=== PATIENT | male | born 1980 | race Two or more races ===

== ENCOUNTER 2017-05-01 12:34 | Emergency (ER) | payer MEDICAID, OTHER ==
[~2017-05-01] VITALS: Ht 180.3 cm; Wt 108.9 kg
[~2017-05-01 12:34] MED LIST: NKM; PERMETHRIN60 GM TOPIC
[2017-05-01] MEDS ORDERED: OMEPRAZOLE20 M3 ORAL (12:48)
[2017-05-01 12:50] VITALS: BP 143/77
[2017-05-01 13:16] LABS: BASOPHILS % (AUTO) 0.8 % (0.0-2.0); EOSINOPHILS % (AUTO) 1.5 % (0.0-3.0); LYMPHOCYTES % (AUTO) 26.8 % (20.0-45.0); MEAN CORPUSCULAR HEMOGLOBIN 30.5 PG (27.0-31.0); MEAN CORPUSCULAR HGB CONC 32.8 G/DL (32.0-36.0); MEAN CORPUSCULAR VOLUME 93 FL (80-99); MEAN PLATELET VOLUME 7.7 FL (6.5-10.1); MONOCYTES % (AUTO) 6.5 % (1.0-10.0); NEUTROPHILS % (AUTO) 64.4 % (45.0-75.0); PLATELET COUNT 250 K/UL (150-450); RED BLOOD COUNT 5.14 M/UL (4.70-6.10); RED CELL DISTRIBUTION WIDTH 11.2 % (11.6-14.8); WHITE BLOOD COUNT 9.6 K/UL (4.8-10.8)
[2017-05-01 13:22] LABS: PROTHROMBIN TIME 10.6 SEC (9.30-11.50)
[2017-05-01 13:27] LABS: ALANINE AMINOTRANSFERASE 54 U/L (3-41); ALBUMIN/GLOBULIN RATIO 1.5 (1.0-2.7); ANION GAP 12 (5-15); ASPARTATE AMINO TRANSFERASE 32 U/L (5-40); CALCIUM 9.2 mg/dL (8.6-10.2); CARBON DIOXIDE 23 mEQ/L (20-30); CHLORIDE 102 mEQ/L (98-107); GLOMERULAR FILTRATION RATE > 60 mL/min (>60); HEMOLYSIS 51; POTASSIUM 4.4 mEQ/L (3.4-4.9); SODIUM 137 mEQ/L (135-145); TOTAL PROTEIN 7.6 g/dL (6.6-8.7)
[2017-05-01 13:28] LABS: TROPONIN I < 0.30 ng/mL (<=0.30)
--- NOTE | 2017-05-01 13:30 | Emergency Room Report ---
History of Present Illness General Chief Complaint: Chest Pain Source: Patient Present Illness HPI The patient presents with an unusual feeling in his head that began on Saturday. 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 He felt like a helmet on top of his head pressing in. He felt anxious at that time also. He immediately went into the refrigeration area and started to feel better. He also felt some chest pain at that time. There were no palpitations. The pain is left-sided and somewhat pressure-like but also sharp. The pain has been intermittent since that time and he still feels it. He smokes. Other risk factors are negative for cardiac disease. He also ate some cannabis on Saturday which allowed to sleep better. Today he had a similar episode in his head. Also had the chest pain. He didn't take any other medication for the chest pain. The patient has a long history of GERD and is on omeprazole daily. He's felt increased chest pain when he lays down. No blood or melena. In addition he has difficulty when he goes to sleep. He feels his breathing might be stopping when he starts to fall asleep and this wakes him up sometimes at night. The patient has gained 25 pounds in the last several months. 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 His family is in [place] and he travels there for the weekends - lacking sleep. There he drinks a 12 pack a day. He doesn't drink during the week. Cutting down to 5 cigarettes/d. No rashes or dysuria. Allergies: Coded Allergies: No Known Allergies (Unverified , 01/01/15) Patient History Past Medical History: see triage record Pertinent Family History: DM - grandfather Social History: Reports: drug use, smoking Social History Narrative in [facility] and 2 jobs Reviewed Nursing Documentation: PMH: Agreed, PSxH: Agreed Nursing Documentation-PMH Past Medical History: No Stated History Review of Systems All Other Systems: negative except mentioned in HPI Physical Exam Vital Signs Date Time Temp Pulse Resp B/P Pulse Ox O2 Delivery O2 Flow Rate FiO2 05/01/17 12:41 100.0 79 19 143/77 97 Room Air Sp02 EP Interpretation: reviewed, normal General Appearance: well appearing, no apparent distress, GCS 15 Head: normocephalic Eyes: bilateral eye PERRL, bilateral eye normal inspection ENT: moist mucus membranes Neck: supple Respiratory: lungs clear, normal breath sounds, other - chest wall slightly tender Cardiovascular #1: regular rate, rhythm Cardiovascular #2: 2+ radial (R) Gastrointestinal: normal inspection, normal bowel sounds, non tender, no mass, non-distended Musculoskeletal: back normal, gait/station normal, normal range of motion Neurologic: alert, oriented x3, grossly normal Psychiatric: anxious Skin: normal inspection, warm/dry Medical Decision Making Diagnostic Impression: Primary Impression: Chest pain Qualified Codes: R07.9 - Chest pain, unspecified Additional Impressions: Stress Sleep apnea Qualified Codes: G47.33 - Obstructive sleep apnea (adult) (pediatric) ER Course Patient presents with chest pain and unusual symptoms with increased stress. DDx; AMI, ACS, GERD, chest wall pain, anxiety, hyperventilation amongst others. VS against PE. Evaluation with EKG, CXR, labs. Treatment with hydration and observation. EKG no acute changes. CXR - no infiltrates. Labs: Nl WBC, H/H. Slightly elevated glucose and ALT. Discussed findings with patient and contribution of alcohol to GERD and possibly stress. No medical emergency at this time. Patient stable for outpatient observation and treatment. Laboratory Tests Test 05/01/17 12:50 05/01/17 13:36 White Blood Count 9.6 K/UL (4.8-10.8) Red Blood Count 5.14 M/UL (4.70-6.10) Hemoglobin 15.7 G/DL (14.2-18.0) Hematocrit 47.8 % (42.0-52.0) Mean Corpuscular Volume 93 FL (80-99) Mean Corpuscular Hemoglobin 30.5 PG (27.0-31.0) Mean Corpuscular Hemoglobin Concent 32.8 G/DL (32.0-36.0) Red Cell Distribution Width 11.2 % (11.6-14.8) L Platelet Count 250 K/UL (150-450) Mean Platelet Volume 7.7 FL (6.5-10.1) Neutrophils (%) (Auto) 64.4 % (45.0-75.0) Lymphocytes (%) (Auto) 26.8 % (20.0-45.0) Monocytes (%) (Auto) 6.5 % (1.0-10.0) Eosinophils (%) (Auto) 1.5 % (0.0-3.0) Basophils (%) (Auto) 0.8 % (0.0-2.0) Prothrombin Time 10.6 SEC (9.30-11.50) Prothrombin Time INR 1.0 (0.9-1.1) PTT 28 SEC (23-33) Sodium Level 137 mEQ/L (135-145) Potassium Level 4.4 mEQ/L (3.4-4.9) Chloride Level 102 mEQ/L (98-107) Carbon Dioxide Level 23 mEQ/L (20-30) Anion Gap 12 (5-15) Blood Urea Nitrogen 20 mg/dL (7-23) Creatinine 1.0 mg/dL (0.7-1.2) Estimate Glomerular Filtration Rate > 60 mL/min (>60) Glucose Level 112 mg/dL (74-106) H Calcium Level 9.2 mg/dL (8.6-10.2) Total Bilirubin 0.3 mg/dL (0.0-1.2) Aspartate Amino Transferase (AST) 32 U/L (5-40) Alanine Aminotransferase (ALT) 54 U/L (3-41) H Alkaline Phosphatase 54 U/L (40-129) Total Creatine Kinase 126 U/L (38-174) Troponin I < 0.30 ng/mL (<=0.30) Pro-B-Type Natriuretic Peptide 35 pg/mL (0-125) Total Protein 7.6 g/dL (6.6-8.7) Albumin 4.6 g/dL (3.5-5.2) Globulin 3.0 g/dL Albumin/Globulin Ratio 1.5 (1.0-2.7) Urine Color Pale yellow Urine Appearance Clear Urine pH 6 (4.5-8.0) Urine Specific [place] 1.020 (1.005-1.035) Urine Protein Negative (NEGATIVE) Urine Glucose (UA) Negative (NEGATIVE) Urine Ketones Negative (NEGATIVE) Urine Occult Blood 2+ (NEGATIVE) H Urine Nitrite Negative (NEGATIVE) Urine Bilirubin Negative (NEGATIVE) Urine Urobilinogen Normal MG/DL (0.0-1.0) Urine Leukocyte Esterase 1+ (NEGATIVE) H Urine RBC 5-10 /HPF (0 - 0) H Urine WBC 2-4 /HPF (0 - 0) Urine Squamous Epithelial Cells Occasional /LPF Urine Bacteria Occasional /HPF (NONE) Urine Opiates Screen Negative (NEGATIVE) Urine Barbiturates Screen Negative (NEGATIVE) Phencyclidine (PCP) Screen Negative (NEGATIVE) Urine Amphetamines Screen Negative (NEGATIVE) Urine Benzodiazepines Screen Negative (NEGATIVE) Urine Cocaine Screen Negative (NEGATIVE) Urine Marijuana (THC) Screen Positive (NEGATIVE) H EKG Diagnostic Results Rate: normal Rhythm: NSR ST Segments: no acute changes Rhythm Strip Diag. Results EP Interpretation: yes Rhythm: NSR, no PVC's, no ectopy Chest X-Ray Diagnostic Results Chest X-Ray Diagnostic Results : Chest X-Ray Ordered: Yes # of Views/Limited/Complete: 1 View Indication: Chest Pain EP Interpretation: Yes Interpretation: no consolidation, no effusion, no pneumothorax, no acute cardiopulmonary disease Impression: No acute disease Interpreting ER Provider: Electronically signed by Taiwo Diehl MD Status: improved Disposition: HOME, SELF-CARE Condition: Improved Scripts Lorazepam* (ATIVAN*) 0.5 Mg Tablet 0.5 MG ORAL THREE TIMES A DAY Y for anxiety, #6 TAB Prov: Taiwo Diehl M.D. 05/01/17 Taiwo Diehl M.D. May 01, 2017 13:30
[2017-05-01 13:51] LABS: APPEARANCE,URINE CLEAR; KETONES,URINE NEGATIVE (NEGATIVE); LEUKOCYTE ESTERASE ,URINE 1+ (NEGATIVE); NITRITE,URINE NEGATIVE (NEGATIVE); PH,URINE 6 (4.5-8.0); PROTEIN,URINE NEGATIVE (NEGATIVE); UROBILINOGEN,URINE NORMAL MG/DL (0.0-1.0)
[2017-05-01 13:55] LABS: BACTERIA,URINE OCCASIONAL /HPF; SQUAMOUS EPITHELIAL CELL,UR OCCASIONAL /LPF (NONE/OCC)
--- NOTE | 2017-05-01 14:40 | Diagnostic Imaging Report ---
Indication: Chest pain Technique: One view of the chest Comparison: none Findings: Lungs and pleural spaces are clear. Heart size is normal. Impression: No acute process
[2017-05-01 14:50] VITALS: BP 122/75
[2017-05-01] MEDS ORDERED: ATIVAN0.5 MG ORAL (16:32)
[2017-05-01 17:28] VITALS: BP 122/78
== END 2017-05-01 17:30 | disposition home or self-care (01) ==
LOC: EMR 12:58
DX: R07.89 Other chest pain (principal); F43.9 Reaction to severe stress, unspecified; G47.30 Sleep apnea, unspecified; F17.200 Nicotine dependence, unspecified, uncomplicated
CPT/HCPCS: 36415; 71010; 80053; 80300; 81003; 82550; 83880; 84484; 85025; 85610; 85730; 93005; 96360

== ENCOUNTER 2017-08-05 07:35 | Emergency (ER) | payer OTHER ==
[~2017-08-05] VITALS: Ht 182.9 cm; Wt 108.9 kg
[~2017-08-05 07:35] MED LIST changes: +ATIVAN0.5 MG ORAL; +OMEPRAZOLE20 M3 ORAL
[2017-08-05] MEDS ORDERED: IBUPROFEN600 MG ORAL (07:42)
[2017-08-05] MEDS ORDERED: ROBAXIN-750750 MG PO (07:42)
[2017-08-05] MEDS ORDERED: Methocarbamol 750mg tab ORAL ONE (08:00)
--- NOTE | 2017-08-05 08:03 | Emergency Room Report ---
History of Present Illness General Chief Complaint: Lower Back Pain or Injury Source: Patient Present Illness HPI 37-year-old male with no significant pmhx p/w back pain for 2 days. Patient states pain started when he bent down to pick something up. Pain is localized to right and left lower back, worse on left, sharp in nature, radiating down leg on left side. Movement worsens pain. There are no alleviating factors. Patient did not take any medication for pain This is the first occurrence of back pain. e past. Denies lower extremity weakness/numbness, no bowel/bladder retention or incontinence, saddle anesthesia. Denies fever, chills, abdominal pain, n/v, dysuria/hematuria. No history of IVDA Allergies: Coded Allergies: No Known Allergies (Unverified , 01/01/15) Patient History Past Medical History: see triage record Past Surgical History: none Pertinent Family History: none Reviewed Nursing Documentation: PMH: Agreed, PSxH: Agreed Nursing Documentation-PMH Past Medical History: No Stated History Review of Systems All Other Systems: negative except mentioned in HPI Physical Exam Vital Signs Date Time Temp Pulse Resp B/P (MAP) Pulse Ox O2 Delivery O2 Flow Rate FiO2 08/05/17 07:37 97.9 90 16 134/92 97 Room Air Sp02 EP Interpretation: reviewed, normal General Appearance: alert, GCS 15, non-toxic, mild distress Head: normocephalic, atraumatic Eyes: bilateral eye normal inspection, bilateral eye PERRL, bilateral eye EOMI ENT: normal ENT inspection, normal pharynx, normal voice, moist mucus membranes Neck: normal inspection, full range of motion, supple Respiratory: normal inspection, lungs clear, normal breath sounds, no respiratory distress, no retraction, no wheezing, speaking full sentences, chest symmetrical Cardiovascular #1: normal inspection, regular rate, rhythm, no edema, normal capillary refill Cardiovascular #2: 2+ radial (R), 2+ radial (L) Gastrointestinal: normal inspection, non tender, soft, non-distended, no guarding Genitourinary: no CVA tenderness Musculoskeletal: normal range of motion, other - Bilateral lower lumbar paraspinal tenderness, no midline tenderness, no area of erythema, able to bear weight on both legs, ambulating without difficulty Neurologic: normal inspection, alert, oriented x3, responsive, motor strength/ tone normal, sensory intact, normal gait, speech normal, other - Motor strength intact 5 out of 5 bilaterally Psychiatric: normal inspection, judgement/insight normal, memory normal Skin: normal inspection, normal color, no rash, warm/dry, well hydrated, normal turgor Medical Decision Making Diagnostic Impression: Primary Impression: Low back pain ER Course 37-year-old male p/w back pain DDX: likely musculoskeletal back pain vs. muscular strain vs. sciatica Lumbar fracture is unlikely given patients age, no midline tenderness, no history of trauma, and that patient is ambulatory. Therefore, at this time no imaging is indicated Serious diagnoses such as cord compression, epidural abscess is unlikely in this patient given the clinical scenario and abscess of neurological symptoms or findings. Patient appears nontoxic. Plan: motrin, robaxin ER course: Patient has remained nontoxic appearing and ambulatory in the ED. Pain improved w/ medications Disposition: Patient will be discharged to home with prescription of motrin and robaxin. Patient cautioned of the effects of robaxin including possible impairment of physical or mental abilities. Patient was instructed to refrain from operating machinery or driving. Patient is also cautioned on the GI effects of motrin and to take sparingly. Patient verbalized understanding. Strict precautions discussed with patient on when to emergently return to the ED which includes severe/worsening back pain, leg weakness/numbness, urinary retention/incontinence, fever or chills, which may indicate severe illness. Patient is to follow up with their PMD within 5 days. Patient agrees with plan. Please note that this Emergency Department Report was dictated using [employer] desk consultant technology software, occasionally this can lead to erroneous entry secondary to interpretation by the dictation equipment. Last Vital Signs Date Time Temp Pulse Resp B/P (MAP) Pulse Ox O2 Delivery O2 Flow Rate FiO2 08/05/17 07:37 97.9 90 16 134/92 97 Room Air Disposition: HOME, SELF-CARE Condition: Improved Scripts Methocarbamol* (ROBAXIN-750*) 750 Mg Tablet 750 MG PO QID, #28 TAB 0 Refills Prov: RetinoCasimiro M.D. 08/05/17 Ibuprofen* (MOTRIN*) 600 Mg Tablet 600 MG ORAL Q8H Y for For Pain, #30 TAB 0 Refills Prov: RetinoCasiimro M.D. 08/05/17 Patient Instructions: Back Pain, Adult Casimiro Wong M.D. Aug 05, 2017 08:03
[2017-08-05 08:25] VITALS: BP 134/92
[2017-08-05 08:28] VITALS: BP 134/92
== END 2017-08-05 08:30 | disposition home or self-care (01) ==
LOC: EMR 07:52
DX: M54.5 Low back pain (principal)
CPT/HCPCS: 99283

== ENCOUNTER 2018-06-22 11:45 | Emergency (ER) | payer OTHER ==
[~2018-06-22] VITALS: Ht 182.9 cm; Wt 104.3 kg
[~2018-06-22 11:45] MED LIST changes: +IBUPROFEN600 MG ORAL; +ROBAXIN-750750 MG PO
[2018-06-22 12:03] VITALS: BP 135/90
[2018-06-22] MEDS ORDERED: Methocarbamol 750mg tab ORAL ONE (12:15)
[2018-06-22] MEDS ORDERED: Ketorolac 60mg Inj IM ONE (12:15)
--- NOTE | 2018-06-22 12:17 | Emergency Room Report ---
History of Present Illness General Chief Complaint: Back Pain-No Injury Source: Patient Present Illness HPI The patient is a 38-year-old male presenting for back pain. 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 He states that this does feel similar to previous back pain but more severe. Pain began approximately one week prior and has been worsening. Worse with movement such as walking and bending. Pain does not radiate. It is an 8 out of 10 dull ache. He has tried naproxen which helps. He denies any other symptoms including N, V, F, chills, abd pain, dysuria, hematuria, incontinence, numbness/tingling Allergies: Coded Allergies: No Known Allergies (Unverified , 01/01/15) Patient History Past Medical History: see triage record Pertinent Family History: none Reviewed Nursing Documentation: PMH: Agreed; PSxH: Agreed Nursing Documentation-PMH Past Medical History: No History, Except For Hx Neurological Problems: Yes - Chronic back pain Review of Systems All Other Systems: negative except mentioned in HPI Physical Exam Vital Signs Date Time Temp Pulse Resp B/P (MAP) Pulse Ox O2 Delivery O2 Flow Rate FiO2 06/22/18 11:56 98.1 71 18 135/90 97 Room Air 98.1 Sp02 EP Interpretation: reviewed, normal General Appearance: no apparent distress, alert, GCS 15, non-toxic Head: normocephalic, atraumatic Eyes: bilateral eye normal inspection, bilateral eye PERRL ENT: hearing grossly normal, normal pharynx, no angioedema, normal voice Respiratory: chest non-tender, lungs clear, normal breath sounds, speaking full sentences Cardiovascular #1: regular rate, rhythm, no edema Gastrointestinal: normal bowel sounds, non tender, soft, non-distended, no guarding, no rebound Musculoskeletal: gait/station normal, normal range of motion, tender - bilat paraspinal muscles Neurologic: alert, oriented x3, responsive, motor strength/tone normal, sensory intact, speech normal Psychiatric: judgement/insight normal, memory normal, mood/affect normal, no suicidal/homicidal ideation Skin: normal color, no rash, warm/dry, well hydrated Lymphatic: no adenopathy Medical Decision Making PA Attestation Dr. Worley is my supervising physician. Patient management was discussed with my supervising physician Diagnostic Impression: Primary Impression: Muscle strain Additional Impression: Low back pain Qualified Codes: M54.5 - Low back pain ER Course The patient is a 38-year-old male presenting for back pain Ddx considered include but not limited to lumbar strain, degenerative disease, epidural abscess, cauda equina syndrome, chronic pain, sciatica, among others PE: NAD. Vitals WNL Abd soft and non tender Back: no step-offs. No midline tenderness. TTP over paraspinal muscles bilat. Slow ambulation. Pt is given Toradol and Robaxin and feels significantly better. Pain has decreased. He will be discharged home with prescription for Motrin and Robaxin. He is advised to use heat therapy at home for his back. He will follow-up with his primary doctor. ER precautions are given Last Vital Signs Date Time Temp Pulse Resp B/P (MAP) Pulse Ox O2 Delivery O2 Flow Rate FiO2 06/22/18 12:03 98.1 78 18 135/90 97 Room Air 98.1 Status: improved Disposition: HOME, SELF-CARE Condition: Improved Scripts Ibuprofen* (MOTRIN*) 600 Mg Tablet 600 MG ORAL Q8H PRN for For Pain, #30 TAB 0 Refills Prov: TERJOSE RAULANELSY P.A. 06/22/18 Methocarbamol* (ROBAXIN-750*) 750 Mg Tablet 750 MG PO TID, #21 TAB 0 Refills Prov: TERZIAN,ELSY P.A. 06/22/18 TERZIANELSY P.A. Jun 22, 2018 12:17
[2018-06-22] MEDS ORDERED: IBUPROFEN600 MG ORAL (13:21)
[2018-06-22] MEDS ORDERED: ROBAXIN-750750 MG PO (13:21)
[2018-06-22 13:28] VITALS: BP 135/90
== END 2018-06-22 13:28 | disposition home or self-care (01) ==
LOC: EMR 12:57
DX: M54.5 Low back pain (principal)
CPT/HCPCS: 96372; 99283

== ENCOUNTER 2018-10-18 13:47 | Emergency (ER) | payer OTHER ==
[~2018-10-18] VITALS: Ht 182.9 cm; Wt 99.8 kg
[2018-10-18 14:20] VITALS: BP 154/94
[2018-10-18] MEDS ORDERED: Lidocaine 2% Visc 15ml soln ORAL ONE (14:30)
[2018-10-18] MEDS ORDERED: Tylenol #3 tab (300mg/30mg) ORAL ONE (14:30)
--- NOTE | 2018-10-18 14:30 | Emergency Room Report ---
History of Present Illness General Chief Complaint: Toothache Source: Patient Present Illness HPI 38-year-old male presents to the emergency department complaining of 9 out of 10 in severity pain localized to the back lower molar on the left side since yesterday. Patient reports that he has a crown on that tooth and has had problems in the past. Patient states that he took Motrin yesterday which resolved his symptoms however after several hours to symptoms did return and were no longer responsive to Motrin. Patient reports he feels as to the left side of his jaw as "swollen "patient denies fevers, chills, recent trauma or fall or recent dental work. He states that he attempted to go to his dentist today however they're closed until Saturday. He denies pain under the tongue or inability to open his mouth. Patient states pain is exacerbated upon attempts to eat food. This time he states there is no fractures at relief his symptoms. Allergies: Coded Allergies: No Known Allergies (Unverified , 01/01/15) Patient History Past Medical History: see triage record Past Surgical History: none Pertinent Family History: none Immunizations: UTD Reviewed Nursing Documentation: PMH: Agreed; PSxH: Agreed Nursing Documentation-PMH Past Medical History: No History, Except For Hx Neurological Problems: Yes - Chronic back pain Review of Systems All Other Systems: negative except mentioned in HPI Physical Exam Vital Signs Date Time Temp Pulse Resp B/P (MAP) Pulse Ox O2 Delivery O2 Flow Rate FiO2 10/18/18 13:56 98.2 65 21 154/102 97 Room Air Sp02 EP Interpretation: reviewed, normal General Appearance: no apparent distress, alert, GCS 15, non-toxic Head: normocephalic, atraumatic Eyes: bilateral eye normal inspection, bilateral eye PERRL ENT: hearing grossly normal, normal voice, other - the gum about tooth 17 is erythematous, tenderness to percussion of tooth 17, there is also a sore just posterior to tooth no.17 in the inferior alveolar area, no palpable fluctuance on exam, Neck: full range of motion Respiratory: chest non-tender, lungs clear, normal breath sounds, speaking full sentences Cardiovascular #1: regular rate, rhythm, no edema Musculoskeletal: back normal, gait/station normal, normal range of motion, non- tender Neurologic: alert, oriented x3, responsive, motor strength/tone normal, sensory intact, speech normal, grossly normal Psychiatric: judgement/insight normal Skin: normal color, no rash, warm/dry, well hydrated Lymphatic: no adenopathy Medical Decision Making PA Attestation Dr. leal is my supervising Physician whom patient management has been discussed with. Diagnostic Impression: Primary Impression: Acute pericoronitis Additional Impressions: Pain, dental Mouth sore ER Course 38-year-old male presents to the emergency department complaining of 9 out of 10 in severity pain localized to the back lower molar on the left side since yesterday. Patient reports that he has a crown on that tooth and has had problems in the past. Patient states that he took Motrin yesterday which resolved his symptoms however after several hours to symptoms did return and were no longer responsive to Motrin. Patient reports he feels as to the left side of his jaw as "swollen "patient denies fevers, chills, recent trauma or fall or recent dental work. He states that he attempted to go to his dentist today however they're closed until Saturday. He denies pain under the tongue or inability to open his mouth. Patient states pain is exacerbated upon attempts to eat food. This time he states there is no fractures at relief his symptoms. Ddx considered but are not limited to cellulitis, dental abscess, orbital cellulitis, d/l tooth, dental pain. ludwigs angina, trigeminal neuralgia Vital signs: are WNL, pt. is afebrile H&PE are most consistent with pericoronitis and dental infection, no signs of fluctuant abscess at this time. ORDERS: none required at this time, the diagnosis is clinical ED INTERVENTIONS: -T#3 PO -Viscous Lidocaine DISCHARGE: At this time pt. is stable for d/c to home. Will provide printed patient care instructions, and any necessary prescriptions. Care plan and follow up instructions have been discussed with the patient prior to discharge. Last Vital Signs Date Time Temp Pulse Resp B/P (MAP) Pulse Ox O2 Delivery O2 Flow Rate FiO2 10/18/18 14:20 98.2 78 18 154/94 100 Room Air Disposition: HOME, SELF-CARE Condition: Stable Scripts Ibuprofen* (MOTRIN*) 600 Mg Tablet 600 MG ORAL THREE TIMES A DAY, #30 TAB 0 Refills Prov: Karen Pool 10/18/18 Amoxicillin/Potassium Clav 875-125* (AUGMENTIN 875-125 TABLET*) 1 Each Tablet 1 TAB ORAL TWICE A DAY for 7 Days, #14 TAB Prov: Karen Pool 10/18/18 Benzocaine (ANBESOL) 9 Gm Gel..gram. 1 APPLIC MM Q6HR, #9 GM Prov: Karen Pool 10/18/18 Acetaminophen With Codeine (T#3) (TYLENOL #3 TAB*) Y Tab 1 TAB ORAL Q6H PRN for For Pain, #6 TAB Prov: Karen Pool 10/18/18 Patient Instructions: Dental Pain Additional Instructions: Take medications as directed. Follow up with a Dentist in 3-5 days, even if your symptoms have resolved. * * --Please review list of Dental clinics, if you do not already have a Dentist Return sooner to ED if new symptoms occur, or current symptoms become worse. Do not drink alcohol, drive, or operate heavy machinery while taking Tylenol # 3 as this may cause drowsiness. - Please note that this Emergency Department Report was dictated using [employer] radioactive waste disposal technology software, occasionally this can lead to erroneous entry secondary to interpretation by the dictation equipment. Karen Pool Oct 18, 2018 14:30
[2018-10-18] MEDS ORDERED: IBUPROFEN600 MG ORAL (14:32)
[2018-10-18] MEDS ORDERED: ANBESOL9 G1 MM (14:32)
[2018-10-18] MEDS ORDERED: ACETAMINOPHEN-1 EAC1 ORAL (14:32)
[2018-10-18] MEDS ORDERED: AUGMENTIN 875-1 EAC1 ORAL (14:32)
[2018-10-18 15:09] VITALS: BP 154/94
== END 2018-10-18 14:53 | disposition home or self-care (01) ==
LOC: EMR 14:35
DX: K05.20 Aggressive periodontitis, unspecified (principal); G89.29 Other chronic pain; M54.9 Dorsalgia, unspecified; K08.89 Other specified disorders of teeth and supporting structures
CPT/HCPCS: 99283